=== PATIENT | female | born 1985 | race Hispanic/Latino ===

== ENCOUNTER 2017-09-15 10:22 | Emergency (ER) | payer BC ==
[~2017-09-15 10:22] MED LIST: ALBU6.7H IH; LEVO500T2 PO
== END 2017-09-15 10:47 | disposition home or self-care (01) ==
LOC: EDH 10:22
DX: B86 Scabies (principal)

== ENCOUNTER 2017-12-25 21:57 | Emergency (ER) | payer BC ==
[2017-12-25] MEDS ORDERED: METHYLPREDNISOLONE SOD SUCC 40MG/ML 1ML ONE (22:39)
[2017-12-25] MEDS ORDERED: ACETAMINOPHEN-CODEINE ELIXIR 5 ML UDCUP ONE (22:39)
[2017-12-25] MEDS ORDERED: DEXAMETHASONE SOD PHOSPHATE 10MG/ML 1ML VIAL ONE (22:40)
== END 2017-12-25 23:10 | disposition home or self-care (01) ==
LOC: EDH 21:57
DX: J30.9 Allergic rhinitis, unspecified (principal); B34.9 Viral infection, unspecified; R51 Headache
CPT/HCPCS: 96372 ×2; 99284; J1100; J2920

== ENCOUNTER 2018-01-28 11:21 | Emergency (ER) | payer BC ==
[2018-01-28] MEDS ORDERED: HYOSCYAMINE SULFATE 0.125 MG TAB.SUBL SL ONE (11:40)
[2018-01-28] MEDS ORDERED: ONDANSETRON ODT 4 MG TAB ONE (11:40)
[2018-01-28 11:53] LABS: BASOPHILS % (AUTO) 0.3 % (0.0-5.0); EOSINOPHILS % (AUTO) 2.1 % (0.0-8.0); HEMATOCRIT 39.2 % (36-48); LYMPHOCYTES % (AUTO) 19.8 % (21.0-51.0); MEAN CORPUSCULAR HEMOGLOBIN 28.9 pg (27.0-33.0); MEAN CORPUSCULAR HGB CONC 33.3 g/dL (32.0-36.0); MEAN CORPUSCULAR VOLUME 86.8 fL (79-99); MONOCYTES % (AUTO) 6.1 % (3.0-13.0); NEUTROPHILS % (AUTO) 71.7 % (40.0-77.0); PLATELET COUNT (AUTO) 369 K/uL (130-400); RED BLOOD CELL COUNT(AUTO) 4.52 MIL/uL (4.00-5.50); RED CELL DISTRIBUTION WIDTH 13.8 % (11.0-15.5)
[2018-01-28 12:00] LABS: CREATININE 0.7 mg/dL (0.5-1.5); POTASSIUM 3.5 mmol/L (3.5-5.1)
[2018-01-28 12:06] LABS: ALBUMIN 3.3 g/dL (3.5-5.0); BILIRUBIN,TOTAL 0.5 mg/dL (0.2-1.0); TOTAL PROTEIN, SERUM 7.2 g/dL (6.0-8.3)
== END 2018-01-28 12:47 | disposition home or self-care (01) ==
LOC: EDH 11:21
DX: R19.7 Diarrhea, unspecified (principal); R11.2 Nausea with vomiting, unspecified; R10.9 Unspecified abdominal pain
CPT/HCPCS: 36415; 80053; 83690; 84703; 85025

== ENCOUNTER 2018-03-01 21:27 | Emergency (ER) | payer BC ==
[2018-03-01 22:07] LABS: BASOPHILS % (AUTO) 0.7 % (0.0-5.0); EOSINOPHILS % (AUTO) 2.8 % (0.0-8.0); MEAN CORPUSCULAR HEMOGLOBIN 29.4 pg (27.0-33.0); MEAN CORPUSCULAR HGB CONC 34.1 g/dL (32.0-36.0); MEAN CORPUSCULAR VOLUME 86.2 fL (79-99); MONOCYTES % (AUTO) 5.5 % (3.0-13.0); PLATELET COUNT (AUTO) 361 K/uL (130-400); RED BLOOD CELL COUNT(AUTO) 4.64 MIL/uL (4.00-5.50); RED CELL DISTRIBUTION WIDTH 13.7 % (11.0-15.5); WHITE BLOOD COUNT (AUTO) 13.1 K/uL (4.8-10.8)
[2018-03-01 22:15] LABS: POTASSIUM 3.5 mmol/L (3.5-5.1)
[2018-03-01 22:20] LABS: APPEARANCE,URINE Clear (CLEAR); BILIRUBIN,URINE Negative (NEGATIVE); COLOR,URINE Yellow (YELLOW); GLUCOSE, URINE (UA) Negative (NEGATIVE); KETONES,URINE Negative (NEGATIVE); LEUKOCYTE ESTERASE ,URINE Negative (NEGATIVE); NITRATE,URINE Negative (NEGATIVE); OCCULT BLOOD,URINE Negative (NEGATIVE); PROTEIN,URINE Negative (NEGATIVE)
[2018-03-01 22:20] LABS: ALBUMIN 3.5 g/dL (3.5-5.0); BILIRUBIN,TOTAL 0.2 mg/dL (0.2-1.0); TOTAL PROTEIN, SERUM 7.4 g/dL (6.0-8.3)
[2018-03-01 22:27] LABS: AMPHET/METH SCREEN,URINE NEGATIVE (NEGATIVE); BARBITURATE SCREEN, URINE NEGATIVE (NEGATIVE); BENZODIAZEPINES SCREEN,URINE NEGATIVE (NEGATIVE); CANNABINOID SCREEN,URINE NEGATIVE (NEGATIVE); COCAINE SCREEN,URINE NEGATIVE (NEGATIVE); OPIATE SCREEN,URINE NEGATIVE (NEGATIVE); PHENCYCLIDINE SCREEN,URINE NEGATIVE (NEGATIVE)
[2018-03-01 22:47] LABS: HCG,QUAL RESULT NEGATIVE (NEGATIVE)
[2018-03-01] MEDS ORDERED: KETOROLAC TROMETHAMINE 30MG/ML ONE (22:52)
[2018-03-02] MEDS ORDERED: ACETAMINOPHEN EXTRA STRENGTH 500 MG TABLET ONE (00:34)
[2018-03-02] MEDS ORDERED: ORPHENADRINE CITRATE 30 MG/ML ML ONE (00:34)
[2018-03-02] MEDS ORDERED: ONDANSETRON HCL 4 MG/2 ML VIAL ONE (01:30)
[2018-03-02] MEDS ORDERED: SODIUM CHLORIDE 0.9% 1000ML 1,000 ML IV ONE (01:30)
== END 2018-03-02 02:24 | disposition home or self-care (01) ==
LOC: EDH 21:27
DX: M54.5 Low back pain (principal)
CPT/HCPCS: 36415; 76770; 76856; 80053; 80305; 81003; 81025; 85025; 96374; 96375; 99285; J1885; J2360; J2405; J7030

== ENCOUNTER 2019-01-08 22:49 | Emergency (ER) | payer BC ==
[2019-01-08] MEDS ORDERED: ONDANSETRON HCL 4 MG/2 ML VIAL ONE (23:09)
[2019-01-08 23:37] LABS: APPEARANCE,URINE Clear (CLEAR); BILIRUBIN,URINE Negative (NEGATIVE); COLOR,URINE Yellow (YELLOW); GLUCOSE, URINE (UA) Negative (NEGATIVE); KETONES,URINE Negative (NEGATIVE); LEUKOCYTE ESTERASE ,URINE Negative (NEGATIVE); NITRATE,URINE Negative (NEGATIVE); OCCULT BLOOD,URINE Negative (NEGATIVE); PH,URINE 5.5 (5.0-8.0); PROTEIN,URINE Negative (NEGATIVE)
[2019-01-08 23:46] LABS: CREATININE 0.8 mg/dL (0.5-1.5); POTASSIUM 3.7 mmol/L (3.5-5.1)
[2019-01-08 23:47] LABS: HCG,QUAL RESULT NEGATIVE (NEGATIVE)
[2019-01-08 23:50] LABS: ALBUMIN 3.2 g/dL (3.5-5.0); BILIRUBIN,TOTAL 0.3 mg/dL (0.2-1.0)
[2019-01-08 23:54] LABS: BASOPHILS % (AUTO) 0.7 % (0.0-5.0); EOSINOPHILS % (AUTO) 2.2 % (0.0-8.0); HEMATOCRIT 37.1 % (36-48); LYMPHOCYTES % (AUTO) 27.9 % (21.0-51.0); MEAN CORPUSCULAR HEMOGLOBIN 28.6 pg (27.0-33.0); MEAN CORPUSCULAR HGB CONC 33.4 g/dL (32.0-36.0); MEAN CORPUSCULAR VOLUME 85.6 fL (79-99); NEUTROPHILS % (AUTO) 63.2 % (40.0-77.0); PLATELET COUNT (AUTO) 374 K/uL (130-400); RED BLOOD CELL COUNT(AUTO) 4.34 MIL/uL (4.00-5.50); RED CELL DISTRIBUTION WIDTH 13.7 % (11.0-15.5); WHITE BLOOD COUNT (AUTO) 14.5 K/uL (4.8-10.8)
[2019-01-09] MEDS ORDERED: HYOSCYAMINE SULFATE 0.125 MG TAB.SUBL SL ONE (01:45)
== END 2019-01-09 01:52 | disposition home or self-care (01) ==
LOC: EDH 22:49
DX: N20.0 Calculus of kidney (principal); K59.00 Constipation, unspecified
CPT/HCPCS: 36415; 74176; 80053; 81003; 81025; 82150; 83690; 85025; 96361; 96374; 99285; J2405

== ENCOUNTER 2019-03-24 02:09 | Emergency (ER) | payer BC ==
[2019-03-24] MEDS ORDERED: MAG HYDROX/AL HYDROX/SIMETH ES 30 ML SUSP UDCUP ONE (02:30)
[2019-03-24] MEDS ORDERED: LIDOCAINE HCL 2% VISCOUS 15 ML UDCUP ONE (02:30)
[2019-03-24] MEDS ORDERED: FAMOTIDINE 20MG TAB 20 MG TAB ONE (02:31)
[2019-03-24] MEDS ORDERED: ONDANSETRON ODT 4 MG TAB ONE (02:32)
[2019-03-24] MEDS ORDERED: PANTOPRAZOLE SODIUM 40 MG TABLET.DR PO ONE (02:32)
== END 2019-03-24 02:46 | disposition home or self-care (01) ==
LOC: EDH 02:09
DX: R10.13 Epigastric pain (principal); R11.2 Nausea with vomiting, unspecified; K08.89 Other specified disorders of teeth and supporting structures; R19.7 Diarrhea, unspecified

== ENCOUNTER 2019-10-20 09:16 | Emergency (ER) | payer BC ==
[~2019-10-20 09:16] MED LIST changes: -ALBU6.7H IH; +ALBU6.7H9 IH
[2019-10-20 09:54] LABS: BASOPHILS % (AUTO) 0.5 % (0.0-5.0); EOSINOPHILS % (AUTO) 3.2 % (0.0-8.0); HEMATOCRIT 43.3 % (36-48); MEAN CORPUSCULAR HEMOGLOBIN 27.7 pg (27.0-33.0); MEAN CORPUSCULAR HGB CONC 32.1 g/dL (32.0-36.0); MEAN CORPUSCULAR VOLUME 86.3 fL (79-99); MONOCYTES % (AUTO) 13.2 % (3.0-13.0); NEUTROPHILS % (AUTO) 58.7 % (40.0-77.0); PLATELET COUNT (AUTO) 326 K/uL (130-400); RED BLOOD CELL COUNT(AUTO) 5.02 MIL/uL (4.00-5.50); RED CELL DISTRIBUTION WIDTH 13.3 % (11.0-15.5); WHITE BLOOD COUNT (AUTO) 7.3 K/uL (4.8-10.8)
[2019-10-20] MEDS ORDERED: ONDANSETRON HCL 4 MG/2 ML VIAL ONE (09:56)
[2019-10-20] MEDS ORDERED: SODIUM CHLORIDE 0.9% 1000ML 2,000 ML IV ONE (09:57)
[2019-10-20] MEDS ORDERED: KETOROLAC TROMETHAMINE 30MG/ML ONE (09:57)
[2019-10-20 10:03] LABS: CREATININE 0.8 mg/dL (0.5-1.5)
[2019-10-20 10:08] LABS: ALBUMIN 3.4 g/dL (3.5-5.0); BILIRUBIN,TOTAL 0.3 mg/dL (0.2-1.0); TOTAL PROTEIN, SERUM 7.7 g/dL (6.0-8.3)
== END 2019-10-20 14:33 | disposition home or self-care (01) ==
LOC: EDH 09:16
DX: J06.9 Acute upper respiratory infection, unspecified (principal); R19.7 Diarrhea, unspecified; R11.2 Nausea with vomiting, unspecified; Z98.51 Tubal ligation status
CPT/HCPCS: 36415; 71045; 80053; 85025; 87804 ×2; 96361; 96374; 96375; 99284; J1885; J2405; J7030

== ENCOUNTER 2021-02-01 11:41 | Emergency (ER) | payer BC ==
[~2021-02-01] VITALS: Ht 160 cm; Wt 131.1 kg
[2021-02-01 12:18] LABS: APPEARANCE,URINE Clear (CLEAR); BILIRUBIN,URINE Negative (NEGATIVE); COLOR,URINE Yellow (YELLOW); GLUCOSE, URINE (UA) Negative (NEGATIVE); KETONES,URINE Negative (NEGATIVE); LEUKOCYTE ESTERASE ,URINE Negative (NEGATIVE); NITRATE,URINE Negative (NEGATIVE); OCCULT BLOOD,URINE Negative (NEGATIVE); PH,URINE 5.5 (5.0-8.0); PROTEIN,URINE Negative (NEGATIVE)
[2021-02-01 12:31] LABS: HCG,QUAL RESULT NEGATIVE (NEGATIVE)
[2021-02-01 12:33] LABS: BACTERIA,URINE Rare /HPF (None Seen); RBC,URINE 0-1 /HPF (0-1); SQUAMOUS EPITHELIAL CELL,UR Rare /HPF (0-2); WBC,URINE 0-1 /HPF (0-1)
[2021-02-01 12:43] LABS: BASOPHILS % (AUTO) 0.2 % (0.0-5.0); EOSINOPHILS % (AUTO) 3.9 % (0.0-8.0); HEMATOCRIT 39.9 % (36-48); LYMPHOCYTES % (AUTO) 27.2 % (21.0-51.0); MEAN CORPUSCULAR HEMOGLOBIN 28.1 pg (27.0-33.0); MEAN CORPUSCULAR HGB CONC 32.3 g/dL (32.0-36.0); MEAN CORPUSCULAR VOLUME 86.9 fL (79-99); MONOCYTES % (AUTO) 5.9 % (3.0-13.0); NEUTROPHILS % (AUTO) 62.6 % (40.0-77.0); PLATELET COUNT (AUTO) 378 K/uL (130-400); RED BLOOD CELL COUNT(AUTO) 4.59 MIL/uL (4.00-5.50); RED CELL DISTRIBUTION WIDTH 13.8 % (11.0-15.5); WHITE BLOOD COUNT (AUTO) 12.6 K/uL (4.8-10.8)
[2021-02-01 12:51] LABS: CREATININE 0.7 mg/dL (0.5-1.5); POTASSIUM 4.2 mmol/L (3.5-5.1)
[2021-02-01 12:55] VITALS: BP 154/72
[2021-02-01 12:56] LABS: ALBUMIN 3.6 g/dL (3.5-5.0); BILIRUBIN,TOTAL 0.3 mg/dL (0.2-1.0); TOTAL PROTEIN, SERUM 7.2 g/dL (6.0-8.3)
[2021-02-01] MEDS ORDERED: ONDANSETRON HCL 4 MG/2 ML VIAL IVP ONE (13:20)
[2021-02-01] MEDS ORDERED: KETOROLAC 30MG VIAL (30MG/ML) IVP ONE (13:20)
[2021-02-01] MEDS ORDERED: LACTATED RINGERS 1000ML 1,000 ML IV ONE (13:20)
[2021-02-01] MEDS ORDERED: FAMOTIDINE/PF 20 MG/2 ML VIAL IV ONE (13:25)
[2021-02-01 14:03] VITALS: BP 154/72
[2021-02-01] MEDS ORDERED: FAMO-136 PO (14:39)
[2021-02-01] MEDS ORDERED: IBUP-2070 PO (14:39)
[2021-02-01 15:13] VITALS: BP 140/68
== END 2021-02-01 15:29 | disposition home or self-care (01) ==
LOC: EDH 11:41
DX: K80.20 Calculus of gallbladder without cholecystitis without obstruction (principal); E66.01 Morbid (severe) obesity due to excess calories; F32.9 Major depressive disorder, single episode, unspecified; Z68.43 Body mass index [BMI] 50.0-59.9, adult; Z88.1 Allergy status to other antibiotic agents
CPT/HCPCS: 36415; 76705; 80053; 81001; 81025; 82150; 83690; 85025; 96374; 96375; 99284; J1885; J2405; J3490; J7120

== ENCOUNTER 2021-02-26 11:58 | Emergency (ER) | payer BC ==
[~2021-02-26] VITALS: Ht 157.5 cm; Wt 113.4 kg
[~2021-02-26 11:58] MED LIST changes: +FAMO-136 PO; +IBUP-2070 PO
[2021-02-26 12:19] VITALS: BP 114/57
[2021-02-26 12:46] LABS: BASOPHILS % (AUTO) 0.7 % (0.0-5.0); EOSINOPHILS % (AUTO) 2.8 % (0.0-8.0); HEMATOCRIT 40.5 % (36-48); LYMPHOCYTES % (AUTO) 21.7 % (21.0-51.0); MEAN CORPUSCULAR HGB CONC 31.6 g/dL (32.0-36.0); MEAN CORPUSCULAR VOLUME 85.4 fL (79-99); MONOCYTES % (AUTO) 6.5 % (3.0-13.0); NEUTROPHILS % (AUTO) 67.9 % (40.0-77.0); PLATELET COUNT (AUTO) 422 K/uL (130-400); RED BLOOD CELL COUNT(AUTO) 4.74 MIL/uL (4.00-5.50); RED CELL DISTRIBUTION WIDTH 13.9 % (11.0-15.5); WHITE BLOOD COUNT (AUTO) 9.9 K/uL (4.8-10.8)
[2021-02-26 12:49] LABS: APPEARANCE,URINE Turbid (CLEAR); BILIRUBIN,URINE Small (NEGATIVE); COLOR,URINE Red (YELLOW); GLUCOSE, URINE (UA) Negative (NEGATIVE); KETONES,URINE Negative (NEGATIVE); LEUKOCYTE ESTERASE ,URINE Moderate (NEGATIVE); NITRATE,URINE Positive (NEGATIVE); OCCULT BLOOD,URINE Large (NEGATIVE); PROTEIN,URINE POS 2+ mg/dL (NEGATIVE); UROBILINOGEN,URINE 0.2 mg/dL (0.2-1.0)
[2021-02-26 13:00] LABS: CREATININE 0.8 mg/dL (0.5-1.5); POTASSIUM 3.8 mmol/L (3.5-5.1)
[2021-02-26 13:03] LABS: ALBUMIN 3.4 g/dL (3.5-5.0); BILIRUBIN,TOTAL 0.4 mg/dL (0.2-1.0); TOTAL PROTEIN, SERUM 7.4 g/dL (6.0-8.3)
[2021-02-26 13:06] LABS: BACTERIA,URINE Few /HPF (None Seen); RBC,URINE TNTC /HPF (0-1); SQUAMOUS EPITHELIAL CELL,UR 0-2 /HPF (0-2)
[2021-02-26] MEDS ORDERED: ONDANSETRON 4MG INJ ONE (13:14)
[2021-02-26] MEDS ORDERED: KETOROLAC 30MG VIAL (30MG/ML) ONE (13:14)
[2021-02-26 13:30] VITALS: BP 145/88
[2021-02-26 15:45] VITALS: BP 138/84
[2021-02-26] MEDS ORDERED: IBUP-2077 PO (16:11)
== END 2021-02-26 17:35 | disposition home or self-care (01) ==
LOC: EDH 11:58
DX: O03.9 Complete or unspecified spontaneous abortion without complication (principal); Z79.899 Other long term (current) drug therapy; Z79.1 Long term (current) use of non-steroidal anti-inflammatories (NSAID); Z98.890 Other specified postprocedural states; Z3A.01 Less than 8 weeks gestation of pregnancy
CPT/HCPCS: 36415; 80053; 81001; 84703; 85025; 86850; 86900; 86901; 87088; 96374; 96375; 99284; J1885; J2405

== ENCOUNTER 2022-11-09 12:44 | Emergency (ER) | payer BC ==
[~2022-11-09] VITALS: Ht 160 cm; Wt 136.1 kg
[~2022-11-09 12:44] MED LIST changes: +ALBU6.7H14 IH; -ALBU6.7H9 IH; +DICY20TA2 PO; +IBUP-2077 PO; +ONDA4TAB10 PO
[2022-11-09 12:46] VITALS: BP 150/88
[2022-11-09] MEDS ORDERED: KETOROLAC 60 MG VIAL (30MG/ML) IM ONE ×2 (16:09→16:30)
[2022-11-09 16:31] LABS: BASOPHILS % (AUTO) 0.4 % (0.0-5.0); EOSINOPHILS % (AUTO) 0.3 % (0.0-8.0); HEMATOCRIT 41.2 % (36-48); LYMPHOCYTES % (AUTO) 19.4 % (21.0-51.0); MEAN CORPUSCULAR HEMOGLOBIN 26.8 pg (27.0-33.0); MEAN CORPUSCULAR HGB CONC 32.5 g/dL (32.0-36.0); MEAN CORPUSCULAR VOLUME 82.4 fL (79-99); MONOCYTES % (AUTO) 6.5 % (3.0-13.0); NEUTROPHILS % (AUTO) 72.6 % (40.0-77.0); PLATELET COUNT (AUTO) 455 K/uL (130-400); RED CELL DISTRIBUTION WIDTH 14.8 % (11.0-15.5); WHITE BLOOD COUNT (AUTO) 23.2 K/uL (4.8-10.8)
[2022-11-09 16:41] LABS: CREATININE 0.8 mg/dL (0.5-1.5); POTASSIUM 3.5 mmol/L (3.5-5.1)
[2022-11-09 16:50] LABS: ALBUMIN 3.2 g/dL (3.5-5.0); TOTAL PROTEIN, SERUM 7.2 g/dL (6.0-8.3)
[2022-11-09 18:00] LABS: APPEARANCE,URINE CLEAR (CLEAR); BILIRUBIN,URINE NEGATIVE (NEGATIVE); COLOR,URINE YELLOW (YELLOW); GLUCOSE, URINE (UA) NEGATIVE (NEGATIVE); KETONES,URINE NEGATIVE (NEGATIVE); LEUKOCYTE ESTERASE ,URINE NEGATIVE Leu/uL (NEGATIVE); NITRATE,URINE NEGATIVE (NEGATIVE); OCCULT BLOOD,URINE LARGE (NEGATIVE); PROTEIN,URINE NEGATIVE (NEGATIVE); UROBILINOGEN,URINE 0.2 mg/dL (0.2-1.0)
[2022-11-09 18:04] LABS: BACTERIA,URINE Rare /HPF (None Seen); MUCUS,URINE Few LPF (None Seen); SQUAMOUS EPITHELIAL CELL,UR Few /HPF (0-2); WBC,URINE 0-1 /HPF (0-1)
[2022-11-09] MEDS ORDERED: SOLU-MEDROL 125MG VIAL ONE (18:46)
[2022-11-09] MEDS ORDERED: SOLU-MEDROL 125MG VIAL IM ONE (19:00)
[2022-11-09] MEDS ORDERED: CEFD300C3 PO (20:24)
[2022-11-09] MEDS ORDERED: CEFTRIAXONE 1G VIAL ONE (20:26)
[2022-11-09] MEDS ORDERED: LIDOCAINE HCL 1% 20 ML VIAL ONE (20:28)
[2022-11-09] MEDS ORDERED: CEFTRIAXONE 1G VIAL IM ONE (20:30)
[2022-11-09] MEDS ORDERED: LIDOCAINE HCL 1% 20 ML VIAL IM SCH (21:00)
== END 2022-11-09 21:46 | disposition home or self-care (01) ==
LOC: EDH 12:44
DX: R50.9 Fever, unspecified (principal); R09.89 Other specified symptoms and signs involving the circulatory and respiratory systems; F32.A Depression, unspecified; Z79.899 Other long term (current) drug therapy; Z98.890 Other specified postprocedural states
CPT/HCPCS: 99284; 71045; 80053; 85025; 83605; 81001; 81025; 36415; 96372 ×3; 93005; J2930; J0696; J1885

== ENCOUNTER 2024-11-01 11:38 | Emergency (ER) | payer BC ==
[~2024-11-01] VITALS: Ht 160 cm; Wt 149.7 kg
[~2024-11-01 11:38] MED LIST changes: +CEFD300C3 PO; +ONDA-243 PO; -ONDA4TAB10 PO
--- NOTE | 2024-11-01 11:54 | ERN ---
ED Note History of Present Illness Stated Complaint: MULT COMP Time Seen by MD: 11:39 Dictation: PATIENT IS A 39-YEAR-OLD FEMALE COMING IN TODAY WITH FLU-LIKE SYMPTOMS TO INCLUDE BODY ACHES, CLEAR RUNNY NOSE FRONTAL SINUS HEADACHE, MILD SORE THROAT WITH PAINFUL SWALLOWING AND NONPRODUCTIVE COUGH. SHE HAS HAD NO NAUSEA VOMITING NO DIARRHEA NO LOSS OF TASTE OR SMELL. SHE IS USING CHLORASEPTIC LOZENGES [id number]. SHE STATES SHE WENT TO AN URGENT CARE ON SATURDAY AND THEY TOLD HER THAT THIS WAS VIRAL AND WOULD JUST GO AWAY INTO TAKE [id number] MEDICATIONS. SHE HAS NOT BEEN TO SEE HER PRIMARY CARE DOCTOR. Allergies: Coded Allergies: No Known Drug Allergies (Verified Allergy, 03/31/12) Home Meds Active Scripts Cefdinir (Cefdinir) 300 Mg Capsule, 300 MG PO BID for FEVER for 10 Days, #20 CAP Prov:NATHAN CHAKRABORTY DNP 11/09/22 Ondansetron (Ondansetron Odt) 4 Mg Tab.rapdis, 4 MG PO QIDP, #28 TAB Prov:LUIGI MORALES 10/27/21 Dicyclomine HCl (Bentyl) 20 Mg Tab, 20 MG PO QIDP, #28 TAB Prov:LUIGI MORALES 10/27/21 Famotidine (Pepcid) 20 Mg Tablet, 20 MG PO BID, #60 TAB Prov:LUIGI MORALES 10/27/21 Ibuprofen (Ibuprofen 800 mg Tab) 800 Mg Tab, 800 MG PO [id number] PRN for PAIN LEVEL 6 TO 10, #30 TAB Prov:DANIAL COREA MD 02/26/21 Famotidine (Pepcid) 20 Mg Tablet, 20 MG PO BID, #30 TAB Prov:DANIAL COREA MD 02/01/21 Ibuprofen (Ibuprofen) 600 Mg Tablet, 600 MG PO Q6H PRN for PAIN, #30 TAB Prov:DANIAL COREA MD 02/01/21 Albuterol Sulfate (Proventil Hfa) 6.7 Gm Hfa.aer.ad, 6.7 GM IH Q6H PRN for cough, #1 Prov:BARRERA JEFFERY MD 03/15/16 Levofloxacin (Levaquin) 500 Mg Tablet, 500 MG PO DAILY, #7 TAB Prov:BARRERA JEFFERY MD 03/15/16 Past Medical History Past Medical History: No Pertinent History, Depression Additional Past Medical Hx: CERVICAL POLYP, ECTOPIC PREGNANY, morbid obese Surgical History: Other Surgical History Other: ECTOPIC LFT TUBAL REMOVAL Family History: Negative Social History: Negative, Lives with family RN Note Reviewed/Agreed w/PFSH: Yes Review of System Dictation CONSTITUTIONAL: Negative except for HPI HEAD/FACE: Negative except for HPI EENT: Negative except for HPI fever c sore throat with RESPIRATORY: Negative except for HPI painful swallowing cough GASTROINTESTINAL/ABDOMINAL: Negative except for HPI GENITOURINARY: Negative except for HPI MUSCULOSKELETAL: Negative except for HPI INTEGUMENTARY: Negative except for HPI NEUROLOGICAL/PSYCH: Negative except for HPI HEMATOLOGIC/LYMPHATIC: Negative except for HPI All Systems Negative, Except as noted above. 13 point review of systems assessed and all negative except for above. Initial Vital Sign VS Vital Signs Date Time Temp Pulse Resp B/P (MAP) Pulse Ox O2 Delivery O2 Flow Rate FiO2 11/01/24 12:15 98.2 88 16 132/78 100 Room Air 0 11/01/24 12:23 21 Physical Exam Dictation Vital Signs reviewed General Appearance: Alert, oriented x 3, no acute distress, well developed, nourished. Head and Face: non-traumatic. Eyes: PERRL, pink conjunctivas, eyelid no trauma, anterior chamber with arcus senilis. Ears: Pinnas intact and no signs of trauma or erythema ear canals clear and no discharge TM no erythema Nose: Clear discharge, no bleeding. Oropharynx: Mouth normal, tongue pink, pharynx clear, moderate pharyngeal erythema, tonsils no exudates, no abscesses noted, mucous membrane moist uvula midline voice is clear Neck: Supple, non-tender, no thyromegaly, no masses, no JVD, no bruits Breast:Deferred Chest:No tenderness, no crepitus, no paradoxical movement, no retractions Lungs:Clear, well-ventilated, symmetric, no rales, no wheezing, no rhonchi, no stridor, good breath sounds bilaterally no tachypnea/no retractions Heart: Regular rate, regular rhythm, no murmur, no gallops Vascular: no peripheral edema, Abdomen: Soft, positive bowel sounds, nondistended, no guarding, nontender, no rebound, no masses no hepatomegaly, no splenomegaly, no Cabrera's sign, no hernias. Rectal: Deferred Genital: Deferred Neurological: Normal speech, motor function intact, sensory function intact Musculoskeletal: Neck nontender, full range of motion, back nontender, full range of motion, Extremities: nontender, full range of motion Skin: Color pink, dry, no turgor, no rash, no lacerations, no abrasions, no contusions. Lymphatic: Deferred Results (Laboratory/Radiology) Laboratory/Radiology Laboratory Tests Test 11/01/24 12:20 Influenza Type A Antigen Negative For Type A Influenza Type B Antigen Negative For Type B SARS-CoV-2 Antigen (Rapid) PRESUMPTIVE NEGATIVE Group A Streptococcus Rapid negative (NEGATIVE) Chest x-ray negativePORTABLE CHEST RADIOGRAPH INDICATION: COUGH TIMES 4-5 DAYS COMPARISON: 11/09/2022 FINDINGS: Image is somewhat underexposed, but the radiologic examination is still believed to be of reasonable diagnostic quality. Heart size is normal. The pulmonary vascularity and azael appear normal. No abnormal pulmonary parenchymal opacity or consolidation identified. No significant pleural effusion noted. No pneumothorax detected. IMPRESSION: No radiographic evidence for any acute cardiopulmonary process. Labs Reviewed?: Yes ED Course ED Course Orders Procedure Category Date Status Time Covid19 (Sars Antigen LAB 11/01/24 Complete Rapid) 11:52 Influenza Type A & B, LAB 11/01/24 Complete Rapid 11:52 Rapid (Group A Strep) LAB 11/01/24 Complete 11:52 Acetaminophen 500mg PHA 11/01/24 Complete Tab (Tylenol 500mg T 12:00 Dexamethasone 4mg/Ml PHA 11/01/24 Complete 1ml Vial (Dexametha 12:00 Chest 1vw RAD 11/01/24 Resulted 12:50 Current Medications Medications (Trade) Dose Ordered Sig/Haley Route PRN Reason Start Time Stop Time Status Last Admin Dose Admin Acetaminophen (TYLenol 500MG TAB) 1,000 mg ONCE ONCE PO 11/01/24 12:00 11/01/24 12:01 DC 11/01/24 12:32 Dexamethasone Sodium Phosphate (dexaMETHasone 4MG/ML 1ML VIAL) 8 mg ONCE ONCE IM 11/01/24 12:00 11/01/24 12:01 DC 11/01/24 12:31 Vital Signs Date Time Temp Pulse Resp B/P (MAP) Pulse Ox O2 Delivery O2 Flow Rate FiO2 11/01/24 12:23 98.2 88 16 132/78 100 Room Air* 0 21 11/01/24 12:15 98.2 88 16 132/78 100 Room Air 0 1355/patient discharged home with viral URI with cough, acute pharyngitis unspecified treated empirically. Medical Decision Making MDM Medical discharge making based on chest x-ray and swabs for flu COVID and strep. Swabs negative Chest x-ray clear Patient will be treated empirically for acute pharyngitis unspecified And viral URI with cough She is aware see her primary care doctor without fail for management since she has already been to two emergency room DX & DISP Disposition: Discharge Departure Impression: Primary Impression: Acute pharyngitis, unspecified Additional Impression: Viral URI with cough Condition: Stable Scripts Azithromycin (Zithromax Tri-Reji) 500 Mg Tablet 500 MG PO DAILY for 5 Days, #5 TAB Prov: JESENIA ROTHMAN NP 11/01/24 Benzonatate (Tessalon Perles) 100 Mg Cap 200 MG PO TID for cough, #60 CAP 0 Refills Prov: JESENIA ROTHMAN NP 11/01/24 Methylprednisolone (Medrol) 4 Mg Tab.ds.pk 1 TAB PO AD for 6 Days, #21 TAB 0 Refills 6 on day 1 then reduce by one tablet daily until gone Prov: JESENIA ROTHMAN NP 11/01/24 Albuterol Sulfate (Ventolin Hfa/Proventil Hfa/Proair Hfa) 90 Mcg Puff 2 PUFF IH Q4H for WHEEZING, #1 INHALER 0 Refills Prov: JESENIA ROTHMAN NP 11/01/24 Additional Instructions: Follow-up with primary care provider in 1 to 2 days. Take medications as directed here in the emergency room. Okay to continue home medications unless otherwise discussed during your visit in the emergency room today. Return to your nearest emergency room if symptoms worsen or if there is no improvement. C all 911 if you need immediate assistance. Take Tylenol or Motrin [id number] as needed and if no contraindications are present. Increase oral hydration. A wound culture or urine culture was ordered here in the emergency room department please follow-up with primary care provider and advise them to get repeat ports from our facility. If you had any Miah wrap/splints that were applied here, please do not remove them until you see your primary care or specialty. Use albuterol every4 hours while awake for the next two days. Take antibiotics as directed until gone., no work until cleared by your primary care doctor tomorrow. Referrals: SHANNAN COLLINS (PCP) Time of Disposition: 13:58 I have reviewed the case, and I agree with, Diagnosis and Plan JESENIA ROTHMAN NP Nov 01, 2024 11:54
[2024-11-01 12:23] VITALS: BP 132/78; PULSE 88; RESP 16; TEMP 98.2; O2SAT 100
[2024-11-01] MEDS: dexaMETHasone SOD PHOSPHATE 4 MG/ML 1ML VIAL IM ONE (12:31)
[2024-11-01] MEDS: acetaMINOPHEN 500 MG TABLET PO ONE (12:32)
[2024-11-01 12:39] LABS: RAPID GROUP A STREP negative (NEGATIVE)
[2024-11-01 12:49] LABS: COVID19 (SARS ANTIGEN RAPID) PRESUMPTIVE NEGATIVE (NEGATIVE); INFLUENZA TYPE A Negative For Type A (NEGATIVE); INFLUENZA TYPE B Negative For Type B (NEGATIVE)
--- NOTE | 2024-11-01 13:41 | HMCIMG ---
PORTABLE CHEST RADIOGRAPH INDICATION: COUGH TIMES 4-5 DAYS COMPARISON: 11/09/2022 FINDINGS: Image is somewhat underexposed, but the radiologic examination is still believed to be of reasonable diagnostic quality. Heart size is normal. The pulmonary vascularity and azael appear normal. No abnormal pulmonary parenchymal opacity or consolidation identified. No significant pleural effusion noted. No pneumothorax detected. IMPRESSION: No radiographic evidence for any acute cardiopulmonary process.
[2024-11-01] MEDS ORDERED: AZIT500T2 PO (14:00)
[2024-11-01] MEDS ORDERED: ALBUHFA IH (14:00)
[2024-11-01] MEDS ORDERED: METH4TAB3 PO (14:00)
[2024-11-01] MEDS ORDERED: BENZ-39 PO (14:00)
== END 2024-11-01 14:12 | disposition home or self-care (01) ==
LOC: EDH 11:38
DX: J02.9 Acute pharyngitis, unspecified (principal); B97.89 Other viral agents as the cause of diseases classified elsewhere; E66.01 Morbid (severe) obesity due to excess calories; Z68.43 Body mass index [BMI] 50.0-59.9, adult; Z79.899 Other long term (current) drug therapy; Z20.822 Contact with and (suspected) exposure to COVID-19
CPT/HCPCS: 99284; 71045; 87426; 87880; 87804 ×2; 96372; J1100